=== PATIENT | female | born 1955 | race African-American/Black ===

== ENCOUNTER 2019-11-26 15:38 | Outpatient (CLI) | payer OTHER, SELFPAY ==
--- NOTE | ~2019-11-26 | MM_ITS ---
EXAMINATION: MM screening [facility] BI w adamaris HISTORY: Screening mammogram TECHNIQUE: Craniocaudal and mediolateral oblique 3-D tomosynthesis images were obtained and synthetic 2-D images were generated. CAD analysis was submitted and interpreted. COMPARISON: 11/23/2018, 10/20/2017, 10/10/2016 bilateral digital screening mammogram examinations BREAST PARENCHYMAL COMPOSITION: The breasts are almost entirely fatty. FINDINGS: There is no evidence of suspicious mass, calcification, or architectural distortion to sugg est malignancy in either breast. There has been no suspicious interval change. IMPRESSION: 1. No mammographic evidence of malignancy. 2. Recommend routine screening mammography in one year. BI-RADS Category 1: Negative Reviewed, dictated and finalized at location A.
== END 2019-11-26 15:39 | disposition home or self-care (01) ==
LOC: ANHIMG 15:41
PROVIDERS: PCP Family Medicine; Visit Provider Family Medicine
DX: Z12.31 Encounter for screening mammogram for malignant neoplasm of breast (principal)
CPT/HCPCS: 77063; 77067

== ENCOUNTER → 2020-05-05 14:44 | Outpatient (CLI) | payer OTHER, SELFPAY ==
--- NOTE | ~2020-05-05 | US_ITS ---
EXAMINATION: US pelvic complete w TV EXAM DATE: 05/05/2020 15:25 INDICATION: Postmenopausal bleeding . TECHNIQUE: Pelvic transabdominal and transvaginal sonogram was performed. There are multiple graysca le and Doppler images available for interpretation. Comparison is made to prior examination from 01/10. FINDINGS: Uterus measures 11.5 x 7.4 x 7.8 cm, with fibroids obscuring the endometrium. Endometrium could measure up to 11 mm in thickness, which is considered abnormal for postmenopausal status, howev er similar measurement obtained in 2016. Differential diagnosis for endometrial thickening includes h yperplasia and cancer. There is no free pelvic fluid. Right adnexa: The ovary is not identified. There is no adnexal mass. Left adnexa: The ovary is not identified. There is no adnexal mass. IMPRESSION: Enlarged fibroid uterus obscuring endometrium, but could measure up to 11 mm which is abn ormally thickened for postmenopausal status. This is however unchanged compared to 2016 exam. If symp toms persist, consider histologic correlation. Reviewed, dictated and finalized at location A. TESTER IMPRESSION: Enlarged fibroid uterus obscuring endometrium, but could measure up to 11 mm which is abnormally thickened for postmenopausal status. This is alex unchanged compared to 2016 exam. If symptoms persist, consider histologic c orrelation.
== END ==
PROVIDERS: PCP Family Medicine; Visit Provider Family Medicine
DX: N95.0 Postmenopausal bleeding (principal); D25.9 Leiomyoma of uterus, unspecified
CPT/HCPCS: 76830; 76856

== ENCOUNTER 2021-03-02 10:40 | Outpatient (CLI) | payer OTHER, SELFPAY ==
--- NOTE | ~2021-03-02 | MM_ITS ---
EXAMINATION: MM screening shahrzad BI w adamaris HISTORY: Screening TECHNIQUE: Craniocaudal and mediolateral oblique 3-D tomosynthesis images were obtained and synthetic 2-D images were generated. CAD analysis was submitted and interpreted. COMPARISON: Comparison to multiple prior studies sequentially, with oldest reviewed study dated 08/2014. BREAST PARENCHYMAL COMPOSITION: There are scattered areas of fibroglandular density. FINDINGS: There is no evidence of suspicious mass, calcification, or architectural distortion to sugg est malignancy in either breast. There has been no suspicious interval change. IMPRESSION: 1. No mammographic evidence of malignancy. 2. Recommend routine screening mammography in one year. BI-RADS Category 1: Negative Reviewed, dictated and finalized at location A. O TAPE TRANSFERRER
== END 2021-03-02 10:41 | disposition home or self-care (01) ==
LOC: ANHIMG 10:53
PROVIDERS: PCP Family Medicine; Visit Provider Family Medicine
DX: Z12.31 Encounter for screening mammogram for malignant neoplasm of breast (principal)
CPT/HCPCS: 77063; 77067

== ENCOUNTER 2021-06-21 02:46 | Emergency (ER) | payer OTHER, SELFPAY ==
--- NOTE | 2021-06-21 02:59 | ECG_ITS ---
Measurements Intervals [place] Rate: 75 P: 45 VT: 148 QRS: 26 QRSD: 109 T: 23 QT: 394 QTc: 440 Interpretive Statements SINUS RHYTHM NO PREVIOUS ECG AVAILABLE FOR COMPARISON Electronically Signed On 06-21-2021 11:13:05 CDT by Omi Corona M.D.
--- NOTE | 2021-06-21 03:00 | ED.EXTPRO ---
HPI - Extremity Problem General Chief complaint: Extremity Problem,Nontraumatic Stated complaint: left arm and left shoulder pain Time Seen by Provider: 06/21/21 02:52 Source: patient and RN notes reviewed Mode of arrival: ambulatory Limitations: no limitations History of Present Illness HPI Narrative: 65-year-old female presenting to the emergency department for evaluation of left arm pain. Patient states that during the day she has minimal left arm pain but at night when she lays down the arm pain keeps her awake. The pain does improve during the day it is still present. Pain has been constant for 2 days. Patient describes pain that radiates from the middle of her back and down the left arm. Patient denies any associated numbness or weakness. Patient denies any chest pain or shortness of breath. Patient denies any prior history of LA. Arm pain and posterior shoulder pain is reproducible when she lifts her arm. Related Data Home Medications Medication Instructions Recorded Confirmed cyclobenzaprine mg 06/21/21 metoprolol succinate PO 06/21/21 naproxen 06/21/21 tramadol mg 06/21/21 Allergies Allergy/AdvReac Type Severity Reaction Status Date / Time No Known Allergies Allergy Verified 06/21/21 03:24 Review of Systems Review of Systems: CONSTITUTIONAL: Denies fever, chills, or sweats. EYES: Denies visual changes, redness, or discharge. ENT: Denies rhinorrhea, congestion, sore throat, or otalgia. CARDIOVASCULAR: Denies chest pain, palpitations, or edema. RESPIRATORY: Denies cough or dyspnea. GASTROINTESTINAL: Denies abdominal pain, nausea, vomiting, or diarrhea. GENITOURINARY: Denies dysuria or hematuria. SKIN: Denies rash or itching. MUSCULOSKELETAL: See HPI NEUROLOGIC: Denies headache, numbness, or weakness.. Exam Narrative: APPEARANCE: Well appearing, no pain, no distress, well-nourished. HEAD: normocephalic, atraumatic. EYES: PERRLA/EOMI, conjunctivae clear. NOSE: Normal no drainage NECK: Supple. No adenopathy, no masses. RESPIRATORY: Airway patent, respirations nonlabored. Clear to auscultation bilaterally, no rales, rhonchi, wheezing. CARDIOVASCULAR: Regular rate and rhythm without murmurs rubs or gallops. ABDOMINAL: Soft, nontender, nondistended, normal bowel sounds MUSCULOSKELETAL: Moves all extremities. Patient does have reproducible tenderness around the shoulder and medial to her left scapula. This induces her arm pain. NEURO: Alert. Cranial nerves II through XII intact. Good gait. Good coordination SKIN: Warm, dry. Normal Color Course Course Emergency Course: Patient continues to deny any chest pain or shortness of breath. EKG showed normal sinus rhythm with normal QRS and no ST changes. Patient's left arm pain is reproducible with movement and with palpation. Low concern for acute LA due to the reproducible nature of her pain. Pain has been constant for greater than 12 hours, troponin was negative. Patient was treated with Toradol and Flexeril. Patient states she did not have a significant change in her symptoms. Patient states she is driving. Vital Signs Vital signs: Vital Signs Pulse Rate 68 06/21/21 03:20 Respiratory Rate 18 06/21/21 03:20 Blood Pressure 170/90 H 06/21/21 03:20 Pulse Oximetry 100 06/21/21 03:20 Pulse Rate 68 06/21/21 03:20 Respiratory Rate 18 06/21/21 03:20 Blood Pressure 170/90 H 06/21/21 03:20 Pulse Oximetry 100 06/21/21 03:20 MDM - Extremity (Nontraumatic) Lab Data Labs: Lab Results 06/21/21 Range/Units 04:04 Troponin I < 0.012 (0.000-0.034) ng/mL ECG Data EKG #1: EKG Interpretation: normal rate, sinus rhythm and no ST changes Discharge Plan Discharge Clinical Impression: Arm pain, left Patient Disposition: Home, Self-Care Condition: Stable Instructions: Antibiotic Form, Arm Pain (ED) Additional Instructions: Continue to have close follow-up with your primary care physician. If you have a
[2021-06-21 03:20] VITALS: BP 170/90; PULSE 68; RESP 18; O2SAT 100
[2021-06-21] MEDS: CYCLOBENZAPRINE HCL 10 MG TABLET PO (03:26)
[2021-06-21] MEDS: KETOROLAC 30 MG/ML VIAL (*BKC) IM (03:27)
[2021-06-21 04:34] LABS: Troponin I < 0.012 ng/mL (0.000-0.034)
[2021-06-21 05:01] VITALS: BP 177/96; PULSE 71; RESP 18; O2SAT 100
== END 2021-06-21 04:55 | disposition home or self-care (01) ==
PROVIDERS: Emergency Provider Emergency Medicine; PCP Family Medicine
DX: M79.602 Pain in left arm (principal)
CPT/HCPCS: 36415; 84484; 93005; 96372; 99284; A9270; J1885

== ENCOUNTER 2022-09-04 12:27 | Outpatient (CLI) | payer OTHER, SELFPAY ==
[2022-09-04 13:49] LABS: Anion Gap 7 mmol/L (8-16); Blood Urea Nitrogen 21 mg/dL (7-17); Carbon Dioxide 26 mmol/L (22-30); Chloride 105 mmol/L (98-107); Estimated Glomerular Filt Rate > 60; Glucose 90 mg/dL (65-110); Sodium 138 mmol/L (137-145)
== END 2022-09-04 12:28 | disposition home or self-care (01) ==
PROVIDERS: Anesthesiology; PCP Family Medicine; Visit Provider Obstetrics & Gynecology
DX: Z79.899 Other long term (current) drug therapy (principal); Z01.818 Encounter for other preprocedural examination
CPT/HCPCS: 36415; 80048

== ENCOUNTER 2022-09-11 01:47 | Day surgery (SDC) | payer OTHER, SELFPAY ==
[2022-09-01 12:54] VITALS: BMI 57.6
--- NOTE | 2022-09-01 12:58 | PC.NURSE ---
Report to the Outpatient Waiting Room, entrance under the green pavilion located off [facility], at time 8:00 on date 09/11/22. Planned Procedure Time: 10:00. Time changes happen often and if your time is changed the preop area will call you the afternoon before. - You and your visitor will be asked to self-screen and do not enter if you have any COVID symptoms. - A mask is optional within the hospital at this time. Patients may have clear liquids (water, carbonated beverages, clear teas, apple juice) until 3 hours prior to surgery (7:00) with a maximum of 20 ounces. - No food from midnight until time of surgery Take the following medications with a SIP of water the morning of surgery: METOPROLOL, TRAMADOL/CYCLOBENZAPRINE IF NEEDED DO NOT STOP ANY OF YOUR OTHER PRESCRIPTION MEDICATIONS PRIOR TO SURGERY ?EXCEPT THE FOLLOWING Medications to discontinue per physician: N/A Date to take last dose: N/A Please no make-up, nail ukrainian, hairspray, perfume, deodorant, or body powder the day of surgery. No jewelry (including any body piercings) or valuables the day of surgery, leave them at home. Please take a shower or bath the night before, or the morning of, surgery with an antibacterial soap. Wear comfortable, loose fitting clothing. - Jewelry must be removed prior to entering the operating room. Rings and piercings that are not removed may be cut off. - The hospital will not accept responsibility for valuables. - Please leave all valuables, including medications, at home the day of surgery. If you are going home after surgery, a licensed shuttle van driver must drive you home. - NO public transportation without another adult if you receive anesthesia. - We recommend that an adult stay with you for 24 hours following discharge. - We also recommend that you do not drive, make important decision, drink alcoholic beverages, or take any drugs that were not prescribed by your health care provider for at least 24 hours after your discharge time. Follow any additional instructions given to you from your surgeon. If you or anyone in your household have experienced Covid symptoms in the past week, please notify your surgeon or the nurse liaison at the phone number below for possible testing. Telephone instructions given to PT - SHANTHI OREILLY and asked if any additional questions and then verbalized understanding. Patient advised to call surgeon office or pre surgery nurse liaison [phone] if any additional questions.
--- NOTE | 2022-09-10 12:51 | PM.IMHP ---
H&P: HPI History of Present Illness Date/Time: 09/10/22 12:51 Chief Complaint: Postmenopausal bleeding Narrative: Loreto is a 66yo postmenopausal P2003 who presents for surgery due to postmenopausal bleeding.? Patient has a h/o PMB; has not had any further vaginal bleeding after starting progesterone.? But she had a pelvic ultrasound which showed a thickened endometrium measuring 1cm in June 2022.? Patient had a hysteroscopy/D&C 2 years ago for similar issue.? Patient would like to proceed with D&C.? Patient states due to her job she was unable to have the surgery until September. Review of Systems Constitutional: Constitutional: Denies chills, Denies fever(s) and Denies headache(s) Eyes: Eyes: Denies change in vision ENT: Denies dizziness and Denies headache(s) Cardiovascular: Cardiovascular: Denies chest pain and Denies dyspnea Respiratory: Respiratory: Denies cough and Denies dyspnea Gastrointestinal: Gastrointestinal: Denies abdominal pain and Denies change in stool character Genitourinary: Genitourinary: Reports abnormal vaginal bleeding, Denies pelvic pain, Denies vaginal discharge, Denies vaginal odor and Denies vaginal pruritus Neurologic: Denies dizziness and Denies headache(s) Psychiatric: Psychiatric: Denies anxiety and Denies depression [facility] Past Medical History Medical History (Updated 09/10/22 @ 12:59 by Beverly Poon MD) Hypertension Morbid obesity with BMI of 50.0-59.9, adult Surgical History Surgical History H/O dilation and curettage H/O knee surgery History of delivery x 2 Family History Family History Mother Diabetes mellitus Hypertension Grandparent Breast cancer Social History Social History Smoking status: Never smoker Alcohol intake: never Alcohol use details: rarely Substance use: never Substance use type: does not use Living arrangements: alone Additional living arrangements comments: grandson Occupation/Education: occupation Gender identity (if verbalized by the patient): Female Sexual Orientation (if Verbalized by the Patient): Straight or Heterosexual Spiritual care concerns: No Meds Home Medications and Allergies Home Medications Medication Instructions Recorded Confirmed Type cyclobenzaprine 10 mg tablet 10 mg PO DAILY PRN Muscle Spasm 06/21/21 09/01/22 History metoprolol succinate 50 mg 50 mg PO DAILY 06/21/21 09/01/22 History tablet,extended release 24 hr naproxen 500 mg tablet 500 mg PO DAILY PRN Pain 06/21/21 09/01/22 History tramadol 50 mg tablet 50 mg PO DAILY PRN Pain 06/21/21 09/01/22 History furosemide 40 mg tablet 40 mg PO DAILY PRN Edema 05/25/22 09/01/22 History liraglutide (weight loss) 3 mg/0.5 3 mg subcut WEEKLY 05/25/22 09/01/22 History mL (18 mg/3 mL) subcut pen injector (Saxenda) phentermine 37.5 mg tablet 37.5 mg PO DAILY 05/25/22 09/01/22 History medroxyprogesterone 10 mg tablet 20 mg PO DAILY 30 days #60 tabs 06/12/22 09/01/22 Rx (Provera) Allergies Allergy/AdvReac Type Severity Reaction Status Date / Time No Known Allergies Allergy Verified 09/01/22 12:51 Exam Const: General: cooperative, comfortable, no acute distress and obese Orientation/consciousness: patient oriented x3 Resp: Effort & Inspection: normal respiratory effort Cardio: Rate: regular rate GI: Inspection: normal to inspection GI Palp: No abdominal tenderness and Yes Soft to palpation : Other: deferred to OR Skin: General skin exam: normal color Neuro: General: patient oriented x3 Extrem: General: normal to inspection Psych: Appearance: grossly normal Affect: normal affect Attitude: cooperative Assessment and Plan Assessment and plan (1) Postmenopausal bleeding: Code(s): N95.0 - Postmenopausal bleeding Status:
--- NOTE | 2022-09-11 07:03 | WPDHPUPDATE1 ---
History and Physical Update Update Date/Time: 09/11/22 07:03 History and Physical has been reviewed, including an updated exam of the patient. There are NO changes in the patient's condition. Risks, benefits, and alternatives have been discussed and questions answered. Patient agrees to proceed with hysteroscopy with D&C.
[2022-09-11 08:03] VITALS: BP 169/99; PULSE 75; RESP 20; TEMP 36.9; O2SAT 100
[2022-09-11] MEDS: ACETAMINOPHEN 500 MG TABLET 1000 MG PO (08:20)
[2022-09-11] MEDS: LACTATED RINGERS 1,000 ML 30 ML IV CONT ×2 (08:25→10:47)
--- NOTE | 2022-09-11 09:36 | WPDANESEPPF ---
Anes - Initial Pre Proc Eval Procedure: Operation Date: 09/11/22 10:00 Proposed Procedures p Hysteroscopy Dilation and Curettage - Beverly Poon MD Date/Time: 09/11/22 09:36 Surgeon: Beverly Poon MD Pre Op Diagnosis: Post Menopausal Bleeding Patient Data Age: 66 Gender: F Height: 1.65 m Weight: 157.3 kg Last Vital Signs Temp 36.9 C 09/11/22 08:03 Pulse 75 09/11/22 08:03 Resp 20 09/11/22 08:03 BP 169/99 H 09/11/22 08:03 Pulse Ox 100 09/11/22 08:03 O2 Del Method Room Air 09/11/22 08:03 Allergies Allergy/AdvReac Type Severity Reaction Status Date / Time No Known Allergies Allergy Verified 09/11/22 07:47 Home Medications Medication Instructions Recorded Confirmed Type cyclobenzaprine 10 mg tablet 10 mg PO DAILY PRN Muscle Spasm 06/21/21 09/11/22 History metoprolol succinate 50 mg 50 mg PO DAILY 06/21/21 09/11/22 History tablet,extended release 24 hr naproxen 500 mg tablet 500 mg PO DAILY PRN Pain 06/21/21 09/11/22 History tramadol 50 mg tablet 50 mg PO DAILY PRN Pain 06/21/21 09/11/22 History furosemide 40 mg tablet 40 mg PO DAILY PRN Edema 05/25/22 09/11/22 History liraglutide (weight loss) 3 mg/0.5 3 mg subcut WEEKLY 05/25/22 09/11/22 History mL (18 mg/3 mL) subcut pen injector (Saxenda) phentermine 37.5 mg tablet 37.5 mg PO DAILY 05/25/22 09/11/22 History medroxyprogesterone 10 mg tablet 20 mg PO DAILY 30 days #60 tabs 06/12/22 09/11/22 Rx (Provera) Patient hx anesthesia problems: none Family hx anesthesia problems: none Results Review: All pre-operative results and documents have been reviewed as part of the pre-operative evaluation. [facility] Past Medical History Medical History Hypertension Morbid obesity with BMI of 50.0-59.9, adult Surgical History Surgical History H/O dilation and curettage H/O knee surgery History of delivery x 2 Family History Family History Mother Diabetes mellitus Hypertension Grandparent Breast cancer Social History Social History Smoking status: Never smoker Alcohol intake: never Alcohol use details: rarely Substance use: never Substance use type: does not use Living arrangements: alone Additional living arrangements comments: grandson Occupation/Education: occupation Gender identity (if verbalized by the patient): Female Sexual Orientation (if Verbalized by the Patient): Straight or Heterosexual Spiritual care concerns: No Anes - Eval Final PreProcedure Day of Procedure 09/11/22 09:36 Patient weight: morbidly obese Heart: regular rate and rhythm Lungs: clear to auscultation Airway: Mallampati scale class II Neurological: alert and oriented Last oral intake: >/= 8 hours ASA classification: III Emergent: no Anesthetic plan: proceed Anesthesia type and monitoring: general GIVS and standard monitoring Results Review: All pre-operative results and documents have been reviewed as part of the pre-operative evaluation. Informed Consent: The patient's anesthetic plan and its attendant risks and benefits were discussed with the patient/family/POA. Questions were solicited and answers provided to the satisfaction of the patient/family/POA.
[2022-09-11 10:50] VITALS: BP 154/82; PULSE 75; RESP 16; O2SAT 100
--- NOTE | 2022-09-11 10:52 | P.OP_ITS ---
Procedure Note - Detailed Date of Procedure 09/11/22 Pre-op Diagnosis Post Menopausal Bleeding Post-op Diagnosis Same Procedure Performed Hysteroscopy with D&C Surgeon Beverly Poon MD Anesthesia MAC Findings Blood all over the labia on arrival to the OR. Long vagina and very small, stenotic, nulliparous cervix which was hard to dilate. The uterus was anteverted and diffusely thickened/polypoid lining noted throughout. Decision was made to biopsy the entire cavity using the Aveta shaver device, as I did not feel like I could easily obtain a good sample with a curettage. Good hemostasis at end of case. Description of Procedure Loreto was taken to the operating room where she was placed under sedation without complications. She was then prepped and draped in the usual sterile fashion in the dorsal lithotomy position with her legs in low Clint stirrups. A time-out was performed and no perioperative antibiotics were indicated. A bivalve speculum was placed within the vagina where the cervix was identified, very small and stenotic. The anterior lip of the cervix was grasped with a single- tooth tenaculum. The cervix was then slowly dilated, but only easily dilated with the first two small dilators. The hysteroscope was advanced into the cervix carefully, allowing the fluid to help hydrodilate and I slowly entered into the uterine cavity. The above findings were noted. Using the Aveta shaver, I sampled all areas of the uterine cavity until a good sample was obtained. Good hemostasis was noted. All instruments were removed from the vagina. Sponge, lap, instrument, and needle counts were correct at the end of the procedure. Patient was awoken from anesthesia and taken to recovery with plans of same-day discharge home. Estimated Blood Loss 10 IV Fluids 700 (Fluid deficit: 100cc) Pathology Yes (endometrial shavings) Complications No immediate complications Condition Stable Disposition Same day [facility] Billing Surgery - Charge Forward: Surgery Billing
[2022-09-11 11:20] VITALS: BP 179/104; PULSE 59; RESP 15
[2022-09-11 11:22] VITALS: BP 161/87; PULSE 57; RESP 16
[2022-09-11 11:45] VITALS: BP 178/78; PULSE 56; RESP 16
[2022-09-11 12:06] VITALS: BP 155/91; PULSE 61; RESP 16
== END 2022-09-11 12:10 | disposition home or self-care (01) ==
PROVIDERS: PCP Family Medicine; Visit Provider Obstetrics & Gynecology
PROC: 0U5B8ZZ Destruction of Endometrium, Via Natural or Artificial Opening Endoscopic (ICD-10-PCS; CPT 58563; principal; 2022-09-11 10:00)
DX: N95.0 Postmenopausal bleeding (principal); I10 Essential (primary) hypertension; E66.01 Morbid (severe) obesity due to excess calories; Z68.43 Body mass index [BMI] 50.0-59.9, adult
CPT/HCPCS: 58558; 36415; 80048; 88305; A9270; J2250; J2405; J2704; J3010; J7120

== ENCOUNTER 2023-05-08 15:14 | Outpatient (CLI) | payer OTHER, SELFPAY ==
--- NOTE | ~2023-05-08 | MM_ITS ---
EXAMINATION: MM screening shahrzad BI w adamaris HISTORY: Screening mammogram TECHNIQUE: Craniocaudal and mediolateral oblique 3-D tomosynthesis images were obtained and synthetic 2-D images were generated. CAD analysis was submitted and interpreted. COMPARISON: 03/02/2021, 11/26/2019 bilateral screening mammogram examinations BREAST PARENCHYMAL COMPOSITION: The breasts are almost entirely fatty. FINDINGS: There is no evidence of suspicious mass, calcification, or architectural distortion to sugg est malignancy in either breast. There has been no suspicious interval change. IMPRESSION: 1. No mammographic evidence of malignancy. 2. Recommend routine screening mammography in one year. BI-RADS Category 1: Negative Reviewed, dictated and finalized at location A. ING CHECKER
== END 2023-05-08 15:15 | disposition home or self-care (01) ==
PROVIDERS: PCP Family Medicine; Visit Provider Family Medicine
DX: Z12.31 Encounter for screening mammogram for malignant neoplasm of breast (principal); Z78.0 Asymptomatic menopausal state
CPT/HCPCS: 77063; 77067

== ENCOUNTER 2023-10-18 08:49 | Outpatient (CLI) | payer MEDICARE, SELFPAY ==
--- NOTE | ~2023-10-18 | DEXA_ITS ---
Bone Density Report Name: SHANTHI OREILLY Age: 68 Sex: Female Ethnicity: White Date of : 1955 Indication: postmenopausal; screening for osteoporosis; history of glucocorticoids; rheumatoid arthritis; secondary osteoporosis; Referring Provider: MERARI, JOE Maddox Study: Bone densitometry was performed. Exam Date: October 18, 2023 Accession number: [id number] Bone Density: Region BMD T-score Z-score Classification AP Spine(L1-L4) 1.784 6.7 8.5 Normal Femoral Neck (Left) 1.210 3.2 4.8 Normal Total Hip (Left) 1.299 2.9 4.2 Normal Femoral Neck (Right) 1.028 1.6 3.2 Normal Total Hip (Right) 1.234 2.4 3.7 Normal Total Hip Mean 1.266 2.7 4.0 Normal World Health Organization criteria for BMD impression classify patients as: Normal (T-score at or above -1.0), Osteopenia (T-score between -1.0 and -2.5), or Osteoporosis (T-score at or below -2.5). Clinical Information Provided by Patient: Has taken Glucocorticoids Has rheumatoid arthritis Has secondary osteoporosis Is being treated for osteoporosis Has used the following medications: Vitamin D Patient maximum height was 65.5 Menopause Age: 46 No regular weight bearing exercise Does not regularly consume dairy products Drinks caffeinated beverages Onset of menses at age 14 Number of children 2 Impression: The patient has normal bone mass. The patient has risk factors, including: history of glucocorticoid therapy. Discussion: It is important to ask patients whether they are taking their medications and to encourage continued and appropriate compliance with their osteoporosis therapies to reduce fracture risk. It is also important to review their risk factors and encourage appropriate calcium and vitamin D intakes, exercise, fall prevention and other lifestyle measures. Follow-Up: Consider a repeat BMD and Vertebral Fracture Assessment (VFA) exam in 2 years or sooner if medically necessary, to reassess this patient's status. Reported by: SANDIE on 10/18/2023 11:06:00 AM. Reviewed, dictated and finalized at location AMayra CAUSEY
== END 2023-10-18 08:50 | disposition home or self-care (01) ==
PROVIDERS: PCP Family Medicine; Visit Provider Nurse Practitioner Family
DX: Z78.0 Asymptomatic menopausal state (principal)
CPT/HCPCS: 77080

== ENCOUNTER 2024-12-03 07:30 | Outpatient (CLI) | payer OTHER, SELFPAY ==
--- NOTE | ~2024-12-03 | MM_ITS ---
EXAMINATION: MM screening [facility] BI w adamaris HISTORY: Screening TECHNIQUE: Craniocaudal and mediolateral oblique 3-D tomosynthesis images were obtained and synthetic 2-D images were generated. CAD analysis was submitted and interpreted. COMPARISON: Comparison to multiple prior studies sequentially, with oldest reviewed study dated 10/10/2016. BREAST PARENCHYMAL COMPOSITION: Not dense: There are scattered areas of fibroglandular density. FINDINGS: There is no evidence of suspicious mass, calcification, or architectural distortion to suggest malignancy in either breast. There has been no suspicious interval change. IMPRESSION: 1. No mammographic evidence of malignancy. 2. Recommend routine screening mammography in one year. BI-RADS Category 1: Negative Reviewed, dictated and finalized at location B.
== END 2024-12-03 07:31 | disposition home or self-care (01) ==
LOC: ANHFOHIMG 07:32
PROVIDERS: PCP Nurse Practitioner Family; Visit Provider Nurse Practitioner Family
DX: Z12.31 Encounter for screening mammogram for malignant neoplasm of breast (principal)
CPT/HCPCS: 77063; 77067